=== PATIENT | female | born 1975 | race African-American/Black ===

== ENCOUNTER 2020-03-20 10:57 | Outpatient (CLI) | payer OTHER, SELFPAY ==
[2020-03-20 12:36] LABS: Hepatitis B Surface Antigen Negative (Negative)
[2020-03-20 12:53] LABS: HIV 1/2 Ab P24 Ag Result Negative (Negative); Hepatitis C Virus Antibody Negative (Negative)
[2020-03-21 11:42] LABS: Rapid Plasma Reagin Non-Reactive (NonReactive)
== END 2020-03-20 10:58 | disposition home or self-care (01) ==
PROVIDERS: PCP Internal Medicine Endocrinology, Diabetes & Metabolism; Visit Provider Obstetrics & Gynecology
DX: Z20.2 Contact with and (suspected) exposure to infections with a predominantly sexual mode of transmission (principal)
CPT/HCPCS: 36415; 86592; 86703; 86803; 87340; G0432

== ENCOUNTER 2021-08-09 12:01 | Outpatient (CLI) | payer OTHER, SELFPAY ==
[2021-08-09 13:49] LABS: HIV 1/2 Ab P24 Ag Result Negative (Negative)
[2021-08-09 14:42] LABS: Hepatitis B Surface Antigen Negative (Negative)
[2021-08-09 15:00] LABS: Hepatitis C Virus Antibody Negative (Negative)
[2021-08-10 12:02] LABS: Rapid Plasma Reagin Non-Reactive (NonReactive)
== END 2021-08-09 12:02 | disposition home or self-care (01) ==
LOC: ANHLAB 12:04
PROVIDERS: PCP Internal Medicine Endocrinology, Diabetes & Metabolism; Visit Provider Obstetrics & Gynecology
DX: Z11.3 Encounter for screening for infections with a predominantly sexual mode of transmission (principal)
CPT/HCPCS: 36415; 86592; 86703; 86803; 87340; G0432

== ENCOUNTER 2024-01-20 11:53 | Outpatient (CLI) | payer OTHER, SELFPAY ==
[2024-01-20 12:57] LABS: Thyroid Stimulating Hormone 0.733 uIU/mL (0.465-4.680)
[2024-01-20 13:07] LABS: HIV 1/2 Ab P24 Ag Result Negative (Negative)
[2024-01-20 13:40] LABS: Hepatitis C Virus Antibody Negative (Negative)
[2024-01-21 08:47] LABS: Rapid Plasma Reagin Non-Reactive (NonReactive)
[2024-01-24 05:07] LABS: Hepatitis Be Antigen Nonreactive
[2024-01-24 09:43] LABS: FSH 67.3 mIU/mL (***)
== END 2024-01-20 11:54 | disposition home or self-care (01) ==
LOC: ANHLAB 11:55
PROVIDERS: PCP Internal Medicine Endocrinology, Diabetes & Metabolism; Visit Provider Obstetrics & Gynecology
DX: Z11.8 Encounter for screening for other infectious and parasitic diseases (principal); N93.9 Abnormal uterine and vaginal bleeding, unspecified; R10.2 Pelvic and perineal pain
CPT/HCPCS: 36415; 83001; 84443; 86592; 86695; 86696; 86703; 86803; 87350; G0432